=== PATIENT | female | born 1985 ===

== ENCOUNTER 2018-09-09 14:52 | Outpatient (CLI) | payer OTHER ==
[~2018-09-09] VITALS: Ht 172.7 cm; Wt 65.8 kg
== END 2018-09-09 15:10 | disposition home or self-care (01) ==
LOC: OFIC 805 14:52
DX: J34.3 Hypertrophy of nasal turbinates (principal); J34.89 Other specified disorders of nose and nasal sinuses; R09.81 Nasal congestion